=== PATIENT | male | born 1980 ===

== ENCOUNTER 2025-05-15 06:00 | Day surgery (SDC) | payer OTHER ==
[2025-05-13 09:45] VITALS: BP 116/78
[2025-05-13 10:41] LABS: BASO % 0.9 % (0.1-1.2); EOS # 0.48 (0.04-0.54); EOS % 11.0 % (0.7-7.0); LYMPH # 1.35 (1.18-3.74); LYMPH % 31.0 % (19.3-53.1); MEAN PLATELET VOLUME 11.00 fl (9.4-12.4); MONO # 0.47 (0.24-0.82); MONO % 10.8 % (4.7-12.5); NEUT # 1.99 (1.56-6.13); NEUT % 45.8 % (34.0-71.1); RED CELL DISTRIBUTION WIDTH 11.9 % (11.6-14.4)
[2025-05-13 10:44] LABS: URINE APPEARANCE Clear; URINE BILIRRUBIN Negative (NEGATIVE); URINE BLOOD Negative; URINE COLOR Yellow; URINE GLUCOSE Negative (NEGATIVE); URINE KETONE Negative (NEGATIVE); URINE LEUKOCYTE Negative; URINE NITRATE Negative; URINE PROTEIN Negative (NEGATIVE); URINE UROBILINOGEN 0.2 E.U./dl
[2025-05-13 10:45] LABS: URINE BACTERIA 2.3 uL (0.0-1933); URINE CAST 0.00 uL (0.0-1.40); URINE EPITHELIAL CELLS 0.3 uL (0.0-38.8); URINE RBC 4.6 uL (0.0-20.8); URINE WBC 0.9 uL (0.0-23.2)
[2025-05-13 11:18] LABS: INR 1.04
[2025-05-13 11:20] LABS: ALT/SGPT 26.0 U/L (12-78); AST/SGOT 27.0 U/L (15-37); BILIRUBIN TOTAL 0.72 mg/dL (0.3-1.2); BUN CREA RATIO 18.0 (7.0-25.0); CREATININE SERUM 0.99 mg/dL (0.70-1.30); GFR 81.38; GLOBULINA 2.8 G/DL (2.4-3.5); GLUCOSE FASTING 94.0 mg/dL (65-100); OSMOLALITY SERUM 281.0 MOSM/KG (275-295)
[~2025-05-15] VITALS: Ht 190.5 cm; Wt 70.3 kg
[~2025-05-15 06:00] MED LIST: CENTRUM ADULTS1 EACH PO
[2025-05-15] MEDS ORDERED: CEFAZOLIN SODIUM 1,000 MG VIAL ONE (06:48)
[2025-05-15] MEDS ORDERED: ENOXAPARIN SODIUM 40 MG/0.4 ML SYRINGE SUBCUTANEO ONE (06:48)
[2025-05-15] MEDS ORDERED: BUPIVACAINE HCL/MPF 0.5% 30ML VIAL ONE (07:30)
[2025-05-15] MEDS ORDERED: LIDOCAINE HCL 1% 20 ML VIAL IJ ONE (07:31)
[2025-05-15] MEDS ORDERED: BACTRIM DS TAB1 EACH PO (09:06)
[2025-05-15] MEDS ORDERED: IBU600 MG PO (09:06)
== END 2025-05-15 12:10 | disposition home or self-care (01) ==
LOC: CIR.AMB 06:00
PROVIDERS: ATTEND Surgery
DX: T82.59 Other mechanical complication of other cardiac and vascular devices and implants (principal); C62.90 Malignant neoplasm of unspecified testis, unspecified whether descended or undescended